=== PATIENT | male | born 1980 ===

== ENCOUNTER 2017-04-12 15:06 | Outpatient (CLI) | payer OTHER | END 2017-04-12 15:13 | disposition home or self-care (01) | LOC: RAD 15:06 | DX: R05 Cough (principal) ==

== ENCOUNTER 2023-04-13 12:45 | Outpatient (CLI) | payer OTHER | END 2023-04-13 13:00 | disposition home or self-care (01) | LOC: MRI 12:45 | PROVIDERS: ATTEND Specialist | DX: M54.50 Low back pain, unspecified (principal); N50.812 Left testicular pain ==